=== PATIENT | male | born 1965 | race Caucasian/White ===

== ENCOUNTER 2019-09-02 22:56 | Emergency (ER) | payer MEDICARE ==
[2019-09-02] MEDS ORDERED: Ondansetron PF 4 MG/2 ML Vial ONE (23:51)
[2019-09-02] MEDS ORDERED: hydrALAZINE 20 MG/ML VIAL ONE (23:51)
--- NOTE | 2019-09-03 00:01 | CT ---
CT Brain WO Con: 09/02/2019 11:27 PM CLINICAL HISTORY: Dizziness and nausea. IMAGING TECHNIQUE: Multiple CT images were obtained of the brain without IV contrast. COMPARISON: None. FINDINGS: Brain: There is areas of encephalomalacia involving the anterior aspect of the frontal lobes. There is a focus of calcification seen within the right frontal lobe on image 13 and 14 of series 2. There is a vascular clip seen within the lower aspect of the midline posterior fossa. No acute infarc t, hemorrhage or hydrocephalus is present. Ventricles: Normal. No hydrocephalus. Skull: There is postsurgical change of a posterior occipital craniotomy. Visualized Paranasal sinuses: Clear. Mastoid air cells:Clear. Extracranial soft tissues:Normal. IMPRESSION: No acute intracranial abnormality. Focus of calcification seen within the right frontal lobe may reflect sequela of prior trauma or infe ction. As a conservative measure, follow-up MRI of the brain with and without contrast may be helpful for additional characterization. Postprocedural change involving the posterior cranial fossa with associated vascular clip. Encephalomalacia involving the anterior frontal lobes likely reflecting sequela from prior trauma.
[2019-09-03 00:12] LABS: #Basophils 0.1 thou/uL (0.0-0.2); #Eosinphils 0.3 thou/uL (0.0-0.7); #Lymphocytes 1.6 thou/uL (1.20-3.40); #Monocytes 0.8 thou/uL (0.11-0.59); #Neutrophils 4.3 thou/uL (1.40-6.50); %Basophils 0.9 % (0.0-1.0); %Eosinophils 4.2 % (0.0-10.0); %Lymphocytes 22.5 % (21.0-51.0); %Monocytes 11.2 % (0.0-10.0); %Neutrophils 61.3 % (42.0-75.0); Hemoglobin 13.2 g/dL (14.0-18.0); Mean Corpuscular HGB CONC 33.4 g/dL (32.0-36.0); Mean Corpuscular Hemoglobin 29.9 pg (27.0-31.0); Mean Corpuscular Volume 89.5 fL (78.0-98.0); Mean Platelet Volume 7.3 fL (7.4-10.4); Platelet Count 227 thou/uL (130-400); RBC Distribution Width 13.7 % (11.5-14.5); Red Blood Cell (RBC) Count 4.42 mill/uL (4.70-6.10); White Blood Cell (WBC) Count 6.9 thou/uL (4.8-10.8)
[2019-09-03 00:19] LABS: ALT (SGPT) 8 U/L (8-55); AST (SGOT) 12 U/L (5-34); Albumin 3.9 g/dL (3.5-5.0); Alkaline Phosphatase 66 U/L (40-110); Anion Gap 12 mmol/L (10-20); BUN (Urea Nitrogen) 15 mg/dL (8.4-25.7); Bilirubin, Total 0.3 mg/dL (0.2-1.2); Calc. Creatinine Clearance 0 mL/min (70-130); Calcium 8.6 mg/dL (7.8-10.44); Carbon Dioxide 27 mmol/L (22-29); Chloride 104 mmol/L (98-107); Estimated GFR-MDRD 43; Globulin 3.2 g/dL (2.4-3.5); Glucose 130 mg/dL (70-105); Protein, Total 7.1 g/dL (6.0-8.3); Sodium 140 mmol/L (136-145)
[2019-09-03] MEDS ORDERED: Meclizine HCl 25 MG TAB ONE ×2 (00:39→00:41)
[2019-09-03] MEDS ORDERED: hydrALAZINE 20 MG/ML VIAL ONE (01:18)
[2019-09-03] MEDS ORDERED: cloNIDine 0.1 MG TAB ONE (02:55)
--- NOTE | 2019-09-03 06:25 | RAD ---
SINGLE VIEW CHEST: Date: 09/02/2019 COMPARISON: None. HISTORY: Dizziness, nausea. FINDINGS: Single view of the chest shows a normal sized cardiomediastinal silhouette. There is no evidence of c onsolidation, mass, or pleural effusion. The bones are unremarkable. IMPRESSION: No evidence of acute cardiopulmonary disease. POS: [facility]
--- NOTE | 2019-09-05 12:05 | EKG ---
Test Reason : Blood Pressure : / mmHG Vent. Rate : 071 BPM Atrial Rate : 071 BPM P-R Int : 156 ms QRS Dur : 086 ms QT Int : 426 ms P-R-T Axes : 049 018 085 degrees QTc Int : 462 ms Normal sinus rhythm Nonspecific ST and T wave abnormality Abnormal ECG Confirmed by ELA BOWER ([id number]), photography editor FELIX ROBLES ([id number] on 09/05/2019 12:04:46 PM Referred By: Confirmed By:ELA BOWER
== END 2019-09-03 04:16 | disposition home or self-care (01) ==
LOC: ERS 22:56
DX: I10 Essential (primary) hypertension (principal); R42 Dizziness and giddiness; R07.9 Chest pain, unspecified; R11.0 Nausea; F41.9 Anxiety disorder, unspecified; F32.9 Major depressive disorder, single episode, unspecified; Z79.899 Other long term (current) drug therapy
CPT/HCPCS: 70450; 71045; 80053; 84484; 85025; 93005; 96374; 96375; 96376; J0360; J2405; J8597